=== PATIENT | male | born 1975 | race Two or more races ===

== ENCOUNTER 2018-12-10 00:40 | Emergency (ER) | payer MEDICAID ==
[~2018-12-10] VITALS: Ht 180.3 cm; Wt 102.1 kg
[2018-12-10 00:48] VITALS: BP 157/97
== END 2018-12-10 02:31 | disposition home or self-care (01) ==
LOC: ER 00:45
DX: S23.41XA Sprain of ribs, initial encounter (principal); M79.672 Pain in left foot; F17.210 Nicotine dependence, cigarettes, uncomplicated; X50.0XXA Overexertion from strenuous movement or load, initial encounter; Y93.89 Activity, other specified; Y92.89 Other specified places as the place of occurrence of the external cause; Y99.8 Other external cause status
CPT/HCPCS: 71046

== ENCOUNTER 2019-05-13 08:40 | Emergency (ER) | payer MEDICAID ==
[~2019-05-13] VITALS: Ht 180.3 cm; Wt 102.1 kg
[2019-05-13 08:52] VITALS: BP 140/80
== END 2019-05-13 09:46 | disposition home or self-care (01) ==
LOC: ER 08:40
DX: S93.402A Sprain of unspecified ligament of left ankle, initial encounter (principal); X50.1XXA Overexertion from prolonged static or awkward postures, initial encounter; Y93.39 Activity, other involving climbing, rappelling and jumping off; Y99.8 Other external cause status; Y92.89 Other specified places as the place of occurrence of the external cause
CPT/HCPCS: 29515; 73610